=== PATIENT | female | born 1985 | race Caucasian/White ===

== ENCOUNTER 2017-08-21 02:25 | Inpatient (IN) | payer OTHER ==
[2017-08-21] VITALS (14 sets, daily range): BP systolic 101–150; BP diastolic 56–76
[~2017-08-21 02:25] MED LIST: CHROMAGEN,1 CAPSULE PO; DOCUSATE SODIU100 MG PO; ENDOCET 5-3251 EACH PO; IBUPROFEN800 MG PO; Motrin PO; PREFERA-OB P1 TABLET PO
[2017-08-21 04:19] LABS: HEMATOCRIT 35.2 % (36.0-46.0); HEMOGLOBIN 11.8 G/DL (11.9-15.5); MCH 29.1 PG (29.0-34.0); MCHC 33.5 G/DL (30.0-36.0); MCV 86.7 FL (83-99); RBC DIS.WIDTH-CV 13.2 % (11.8-14.6); RBC DIS.WIDTH-SD 41.6 % (39-53); RED BLOOD COUNT 4.06 M/uL (3.80-5.20); WHITE BLOOD COUNT 12.6 K/uL (4.1-10.2)
[2017-08-21 05:51] LABS: ABS NEUTROPHIL COUNT 9.8; ATYPICAL LYMPHOCYTE 6.1 %; BAND NEUTROPHILS 3.5 % (0-8.0); BASOPHILS 0.9 %; EOSINOPHIL ABS CT 0; LYMPHOCYTES 9.5 % (15.0-45.0); MONOCYTES 6.1 % (0-9.0); PLAT.SUFFICIENCY ADEQUATE; PLATELET COUNT 194 K/uL (156-360); SEG.NEUTROPHILS 73.9 % (46.0-76.0); TOX.VACUOLIZATION 1+; TOXIC GRANULATION 1+
[2017-08-21] MEDS ORDERED: MOTRIN800 MG PO (08:03)
[2017-08-21 08:05] LABS: AMPHETAMINE NEGATIVE (500 ng/mL); BARBITURATES NEGATIVE (200 ng/mL); BENZODIAZEPINES NEGATIVE (150 ng/mL); BUPRENORPHINE NEGATIVE (10 ng/mL); COCAINE NEGATIVE (150 ng/mL); METHADONE NEGATIVE (200 ng/mL); METHAMPHETAMINE NEGATIVE (500 ng/mL); OPIATES (MORPHINE) NEGATIVE (100 ng/mL); OXYCODONE NEGATIVE (100 ng/mL); PHENCYCLIDINE NEGATIVE (25 ng/mL); PROPOXYPHENE NEGATIVE (300 ng/mL); THC CANNABINOIDS NEGATIVE (50 ng/mL); TRICYCLIC ANTIDEPRESSANTS NEGATIVE (300 ng/mL)
[2017-08-22 07:15] VITALS: BP 97/55
== END 2017-08-22 14:54 | disposition home or self-care (01) | DRG 775 ==
LOC: LDRP-OP 02:25 → 2WEST 02:26 → LDRP-OP 09-14 13:33
PROVIDERS: Nurse Practitioner
PROC: 10E0XZZ Delivery of Products of Conception, External Approach (ICD-10-PCS; principal; 2017-08-21)
PROC: 10907ZC Drainage of Amniotic Fluid, Therapeutic from Products of Conception, Via Natural or Artificial Opening (ICD-10-PCS; 2017-08-21)
DX: O48.0 Post-term pregnancy (principal); Z3A.40 40 weeks gestation of pregnancy; Z37.0 Single live birth; E66.9 Obesity, unspecified; O99.214 Obesity complicating childbirth; O12.04 Gestational edema, complicating childbirth; O77.0 Labor and delivery complicated by meconium in amniotic fluid; O26.893 Other specified pregnancy related conditions, third trimester; Z68.35 Body mass index [BMI] 35.0-35.9, adult; O63.0 Prolonged first stage (of labor); O69.89X1 Labor and delivery complicated by other cord complications, fetus 1
CPT/HCPCS: 85025